=== PATIENT | female | born 1930 | race Hispanic/Latino ===

== ENCOUNTER 2017-03-14 14:34 | Inpatient (IN) | payer MEDICARE ==
[2017-03-14 14:34] VITALS: BMI 23.8
[2017-03-14] MEDS ORDERED: Sodium Chloride 0.9% 500 ML IV ONE ×2 (15:09→15:59)
--- NOTE | 2017-03-14 15:09 | C.PDOC ---
History Of Present Illness 87 y/o female with PMHx of HTN and Dementia presents to ED with complaints of worsening generalized weakness and Dementia for 2 weeks. As per son who is at bedside patients symptoms started Sunday but have became progressively worse and now patient is refusing to eat. Patient was brought to ED for concerns after today she "wet the bed" and refused to move from bed. At ED patient is responding to command and is AAAOx3. No other complaints at this time. Time Seen by Provider: 03/14/17 14:58 Chief Complaint (Nursing): Weakness/Neurological Deficit History Per: Patient History/Exam Limitations: no limitations Onset/Duration Of Symptoms: Days Current Symptoms Are (Timing): Still Present Past Medical History Reviewed: Historical Data, Nursing Documentation, Vital Signs Vital Signs: Last Vital Signs Temp 97.5 F L 03/14/17 14:44 Pulse 83 03/14/17 14:44 Resp 20 03/14/17 14:44 BP 142/78 03/14/17 14:44 Pulse Ox 95 03/14/17 16:13 - Medical History PMH: Alzheimer's Disease, CVA, Dementia, HTN, Hypercholesterolemia Surgical History: No Surg Hx Family History: States: No Known Family Hx - Social History Hx Tobacco Use: No Hx Alcohol Use: No Hx Substance Use: No - Immunization History Hx Tetanus Toxoid Vaccination: No Hx Influenza Vaccination: No Hx Pneumococcal Vaccination: No Review Of Systems Except As Marked, All Systems Reviewed And Found Negative. Constitutional: Negative for: Fever, Chills Gastrointestinal: Negative for: Nausea, Vomiting, Diarrhea Skin: Negative for: Rash Physical Exam - Physical Exam Appears: Other (lethargic) Skin: Warm, Dry, No Rash Head: Atraumatic, Normacephalic Eye(s): bilateral: Other (spacy in staring) Oral Mucosa: Moist Throat: Normal, No Erythema, No Exudate Chest: Symmetrical Cardiovascular: Rhythm Regular Respiratory: Normal Breath Sounds, No Rales, No Rhonchi, No Wheezing Gastrointestinal/Abdominal: Soft, No Guarding, No Rebound, Other (Diffuse discomfort) Extremity: Normal ROM, No Pedal Edema Neurological/Psych: Oriented x3 Gait: With Assistance (Walker) ED Course And Treatment - Laboratory Results Result Diagrams: 03/14/17 15:19 03/14/17 15:19 O2 Sat by Pulse Oximetry: 95 (RA) Pulse Ox Interpretation: Normal Disposition Discussed With DrArt: Minerva Green - Disposition Disposition: HOME/ ROUTINE Disposition Time: 16:37 Condition: GUARDED Instructions: Weakness (ED) Forms: [facility] (Cym[employer]) - Clinical Impression Clinical Impression: Weakness generalized - Scribe Statement The provider has reviewed the documentation as recorded by the Scribe Supa Flood All medical record entries made by the Scribe were at my direction and personally dictated by me. I have reviewed the chart and agree that the record accurately reflects my personal performance of the history, physical exam, medical decision making, and the department course for this patient. I have also personally directed, reviewed, and agree with the discharge instructions and disposition. Decision To Admit - Pt Status Changed To: Hospital Disposition Of: Inpatient - Admit Certification Admit to Inpatient:: After my assessment, the patient will require hospitalization for at least two midnights. This is because of the severity of symptoms shown, intensity of services needed, and/or the medical risk in this patient being treated as an outpatient. - . Bed Request Type: Regular Patient Diagnosis: Weakness generalized
[2017-03-14 15:23] LABS: BASO # 0.1 K/uL (0.0-0.2); BASO % 0.7 % (0.0-2.0); HEMATOCRIT 35.1 % (34.0-47.0); LYMPH # 0.7 K/uL (1.0-4.3); LYMPH % 6.6 % (20.0-40.0); MEAN CELL VOLUME 91.5 fL (81.0-99.0); MEAN CORPUSCULAR HEMOGLOBIN 30.5 pg (27.0-31.0); MEAN CORPUSCULAR HGB CONC 33.4 g/dL (33.0-37.0); MEAN PLATELET VOLUME 10.9 fL (7.2-11.7); MONO # 0.6 K/uL (0.0-0.8); MONO % 5.7 % (0.0-10.0); NRBC % 0.1 % (0.0-2.0); PLATELET COUNT 194 K/uL (130-400); RED CELL DISTRIBUTION WIDTH 14.9 % (11.5-14.5); WHITE BLOOD COUNT 10.2 K/uL (4.8-10.8)
[2017-03-14 15:32] LABS: POTASSIUM 4.5 mmol/L (3.6-5.2)
[2017-03-14 15:34] LABS: BILIRUBIN,TOTAL 0.9 mg/dL (0.2-1.3); TOTAL PROTEIN 8.5 g/dL (6.3-8.3)
[2017-03-14 15:35] LABS: CALCIUM 9.9 mg/dl (8.6-10.4)
[2017-03-14 15:51] LABS: TROPONIN I 0.034 ng/mL (0.00-0.120)
[2017-03-14 16:04] LABS: NEUTROPHIL 87 % (50-75); TOTAL CELLS COUNTED 100
[2017-03-14 16:05] LABS: LARGE PLATELETS PRESENT
--- NOTE | 2017-03-14 16:17 | RAD ---
HISTORY: pain COMPARISON: No prior. FINDINGS: BOWEL: Unremarkable bowel gas pattern. Dilated loop of bowel in the right upper quadrant of the abdomen likely represents transverse colon and hepatic flexure of the colon. No hepatic splenic enlargement. No masses or abnormal calcifications. BONES: Normal. OTHER FINDINGS: None. IMPRESSION: No active disease.
--- NOTE | 2017-03-14 16:18 | RAD ---
PROCEDURE: CHEST RADIOGRAPH, 1 VIEW HISTORY: SOB COMPARISON: 12/07/2015 FINDINGS: LUNGS: Subsegmental atelectasis at left lung base. No infiltrate elsewhere. PLEURA: No pneumothorax or pleural fluid seen. CARDIOVASCULAR: Normal. OSSEOUS STRUCTURES: Bilateral chronic rotator cuff insufficiency with superior subluxation of humeral head. VISUALIZED UPPER ABDOMEN: Normal. OTHER FINDINGS: None. IMPRESSION: Left basilar subsegmental atelectasis. No acute infiltrate.
[2017-03-14] MEDS: Enoxaparin 40 mg Syringe SC SCH (19:23)
--- NOTE | 2017-03-14 19:44 | CP.PCM.HP ---
Past Patient History - Infectious Disease Hx of Infectious Diseases: None - Past Medical History & Family History Past Medical History?: Yes - Past Social History Smoking Status: Never Smoked - CARDIAC Hx Hypercholesterolemia: Yes Hx Hypertension: Yes - PULMONARY Hx Respiratory Disorders: No - NEUROLOGICAL Hx Alzheimer's Disease: Yes Hx Dementia: Yes - HEENT Hx HEENT Problems: No - RENAL Hx Chronic Kidney Disease: No - ENDOCRINE/METABOLIC Hx Endocrine Disorders: No - HEMATOLOGICAL/ONCOLOGICAL Hx Blood Disorders: No - INTEGUMENTARY Hx Dermatological Problems: No - MUSCULOSKELETAL/RHEUMATOLOGICAL Hx Musculoskeletal Disorders: Yes Hx Falls: Yes - GASTROINTESTINAL Hx Gastrointestinal Disorders: No - GENITOURINARY/GYNECOLOGICAL Hx Genitourinary Disorders: No - PSYCHIATRIC Hx Substance Use: No - SURGICAL HISTORY Hx Surgeries: Yes Hx Eye Surgery: Yes - ANESTHESIA Hx Anesthesia: No Meds Allergies/Adverse Reactions: Allergies Allergy/AdvReac Type Severity Reaction Status Date / Time No Known Allergies Allergy Verified 03/14/17 14:46 Physical Exam - Constitutional Appears: Well - Head Exam Head Exam: ATRAUMATIC, NORMAL INSPECTION, NORMOCEPHALIC - Eye Exam Eye Exam: EOMI, Normal appearance, PERRL Pupil Exam: NORMAL ACCOMODATION, PERRL - ENT Exam ENT Exam: Mucous Membranes Moist, Normal Exam - Neck Exam Neck exam: Positive for: Normal Inspection - Respiratory Exam Respiratory Exam: Decreased Breath Sounds - Cardiovascular Exam Cardiovascular Exam: REGULAR RHYTHM, +S1, +S2 - GI/Abdominal Exam GI & Abdominal Exam: Diminished Bowel Sounds, Soft - Rectal Exam Rectal Exam: Deferred Results - Vital Signs Recent Vital Signs: Last Vital Signs Temp 97.5 F L 03/14/17 14:44 Pulse 78 03/14/17 17:40 Resp 19 03/14/17 17:40 BP 203/86 H 03/14/17 19:19 Pulse Ox 95 03/14/17 17:40 - Labs Result Diagrams: 03/14/17 15:19 03/14/17 15:19 Labs: Laboratory Results - last 24 hr 03/14/17 03/14/17 03/14/17 15:19 15:19 15:50 WBC 10.2 RBC 3.83 Hgb 11.7 Hct 35.1 MCV 91.5 MCH 30.5 MCHC 33.4 RDW 14.9 H Plt Count 194 MPV 10.9 Neut % (Auto) 87.0 H Lymph % (Auto) 6.6 L [place] % (Auto) 5.7 Eos % (Auto) 0.0 Baso % (Auto) 0.7 Neut # 8.8 H Lymph # 0.7 L [place] # 0.6 Eos # 0.0 Baso # 0.1 Neutrophils % (Manual) 87 H Lymphocytes % (Manual) 8 L Monocytes % (Manual) 5 Platelet Estimate Normal Large Platelets Present Hypochromasia (manual) Slight Poikilocytosis (manual Slight Anisocytosis (manual) Slight Target Cells Slight Sodium 135 Potassium 4.5 Chloride 99 Carbon Dioxide 23 Anion Gap 18 BUN 42 H Creatinine 1.4 H Est GFR ( Amer) 43 Est GFR (Non-Af Amer) 36 Random Glucose 130 H Calcium 9.9 Total Bilirubin 0.9 AST 36 ALT 28 Alkaline Phosphatase 61 Troponin I 0.0340 NT-Pro-B Natriuret Pep 4230 H Total Protein 8.5 H Albumin 4.3 Globulin 4.2 H Albumin/Globulin Ratio 1.0 Influenza Typ A,B (EIA) Negative for flu a/b
[2017-03-14 21:55] VITALS: RESP 20
[2017-03-15 07:26] LABS: BASO # 0.1 K/uL (0.0-0.2); BASO % 0.8 % (0.0-2.0); EOS # 0.1 K/uL (0.0-0.7); EOS % 1.6 % (0.0-4.0); HEMATOCRIT 29.8 % (34.0-47.0); LYMPH # 1.5 K/uL (1.0-4.3); LYMPH % 16.1 % (20.0-40.0); MEAN CELL VOLUME 91.1 fL (81.0-99.0); MEAN CORPUSCULAR HEMOGLOBIN 31.1 pg (27.0-31.0); MEAN CORPUSCULAR HGB CONC 34.1 g/dL (33.0-37.0); MEAN PLATELET VOLUME 10.9 fL (7.2-11.7); MONO % 10.7 % (0.0-10.0); RED CELL DISTRIBUTION WIDTH 14.6 % (11.5-14.5); WHITE BLOOD COUNT 9.2 K/uL (4.8-10.8)
[2017-03-15 07:35] LABS: POTASSIUM 3.4 mmol/L (3.6-5.2)
[2017-03-15 07:37] LABS: BILIRUBIN,TOTAL 0.5 mg/dL (0.2-1.3); CALCIUM 9.3 mg/dl (8.6-10.4); TOTAL PROTEIN 6.5 g/dL (6.3-8.3)
[2017-03-15] MEDS: Enoxaparin 40 mg Syringe SC SCH (10:29)
[2017-03-15] MEDS: Pantoprazole 40 mg EC Tab PO SCH (10:46)
--- NOTE | 2017-03-15 13:20 | CP.PCM.CON ---
History of Present Illness - History of Present Illness History of Present Illness: 87-year-old lady with prior history of hypertension, hypertensive heart disease , and dementia. She is homebound, and an echocardiogram in 2014 revealed normal left ventricular contractility no aortic stenosis. At this time, she is admitted with failure to thrive, weakness and low food intake.her blood pressure is controlled with multiple medication. And she was started on to ceftriaxone for possible sepsis. For prior history of diastolic left ventricular failure, we will repeat the echo.prior history of non-ST elevation [place], no cardiac categorization as per family wishes, dnr.now white count is down from 10-9, albumen is low and potassium is borderline Review of Systems - Review of Systems Systems not reviewed;Unavailable: Unstable Vital Signs, Altered Mental Status - Constitutional Constitutional: Anorexia, Weakness - EENT Eyes: absent: Exophthalmos Nose/Mouth/Throat: absent: Epistaxis - Cardiovascular Cardiovascular: absent: Acrocyanosis, Chest Pain, Diaphoresis, Dyspnea, Leg Edema, Palpitations, Syncope - Respiratory Respiratory: absent: Cough, Dyspnea, Hemoptysis - Gastrointestinal Gastrointestinal: absent: Abdominal Pain, Diarrhea, Hematochezia, Vomiting - Genitourinary Genitourinary: absent: Change in Urinary Stream - Reproductive: Female Reproductive:Female: Post Menopausal - Psychiatric Psychiatric: Depression - Endocrine Endocrine: Fatigue Past Patient History - Infectious Disease Hx of Infectious Diseases: None - Past Medical History & Family History Past Medical History?: Yes - Past Social History Smoking Status: Never Smoked - CARDIAC Hx Hypercholesterolemia: Yes Hx Hypertension: Yes - PULMONARY Hx Respiratory Disorders: No - NEUROLOGICAL Hx Alzheimer's Disease: Yes Hx Dementia: Yes - HEENT Hx HEENT Problems: No - RENAL Hx Chronic Kidney Disease: No - ENDOCRINE/METABOLIC Hx Endocrine Disorders: No - HEMATOLOGICAL/ONCOLOGICAL Hx Blood Disorders: No - INTEGUMENTARY Hx Dermatological Problems: No - MUSCULOSKELETAL/RHEUMATOLOGICAL Hx Musculoskeletal Disorders: Yes Hx Falls: Yes - GASTROINTESTINAL Hx Gastrointestinal Disorders: No - GENITOURINARY/GYNECOLOGICAL Hx Genitourinary Disorders: No - PSYCHIATRIC Hx Substance Use: No - SURGICAL HISTORY Hx Surgeries: Yes Hx Eye Surgery: Yes - ANESTHESIA Hx Anesthesia: No Meds Allergies/Adverse Reactions: Allergies Allergy/AdvReac Type Severity Reaction Status Date / Time No Known Allergies Allergy Verified 03/14/17 14:46 - Medications Medications: Current Medications Amlodipine Besylate (Norvasc) 5 mg PO DAILY [facility] Last Admin: 03/15/17 10:46 Dose: 5 mg Aspirin (Ecotrin) 81 mg PO DAILY [facility] Last Admin: 03/15/17 10:46 Dose: 81 mg Clonidine HCl (Catapres) 0.1 mg PO Q8H [facility] Last Admin: 03/15/17 10:49 Dose: 0.1 mg Enoxaparin Sodium (Lovenox) 40 mg SC DAILY [facility] Last Admin: 03/15/17 10:29 Dose: 40 mg Furosemide (Lasix) 40 mg IVP DAILY [facility] Last Admin: 03/15/17 10:50 Dose: 40 mg Hydralazine HCl (Apresoline) 100 mg PO Q8H [facility] Last Admin: 03/15/17 05:26 Dose: 100 mg Ceftriaxone Sodium 1 gm/ (Sodium Chloride) 100 mls @ 100 mls/hr IVPB DAILY [facility] Last Admin: 03/15/17 10:28 Dose: 100 mls/hr Losartan Potassium (Cozaar) 100 mg PO DAILY [facility] Last Admin: 03/15/17 10:46 Dose: 100 mg Meclizine HCl (Antivert) 12.5 mg PO TID [facility] Last Admin: 03/15/17 10:46 Dose: 12.5 mg Metoprolol Tartrate (Lopressor) 25 mg PO BID [facility] Last Admin: 03/15/17 10:46 Dose: 25 mg Pantoprazole Sodium (Protonix Ec Tab) 40 mg PO DAILY [facility] Last Admin: 03/15/17 10:46 Dose: 40 mg Rosuvastatin Calcium (Crestor) 5 mg PO HS [facility] Last Admin: 03/14/17 21:44 Dose: 5 mg Physical Exam - Constitutional Appears: Non-toxic - Head Exam Head Exam: ATRAUMATIC - Eye Exam Eye Exam: EOMI - ENT Exam ENT Exam: Mucous Membranes Moist - Neck Exam Neck exam: Negative for: Lymphadenopathy, Thyromegaly - Respiratory Exam Respiratory Exam: Clear to Auscultation Bilateral. absent: Chest Wall Tenderness, Rales - Cardiovascular Exam Cardiovascular Exam: REGULAR RHYTHM, Systolic Murmur - GI/Abdominal Exam GI & Abdominal Exam: Normal Bowel Sounds. absent: Organomegaly - Rectal Exam Rectal Exam: Deferred - Extremities Exam Extremities exam: Positive for: normal capillary refill, normal inspection. Negative for: calf tenderness - Neurological Exam Neurological exam: Alert - Psychiatric Exam Psychiatric exam: Anxious Results - Vital Signs Recent Vital Signs: Last Vital Signs Temp 97.8 F 03/15/17 07:42 Pulse 76 03/15/17 07:42 Resp 20 03/15/17 07:42 BP 146/70 03/15/17 10:50 Pulse Ox 95 03/15/17 07:42 - Labs Result Diagrams: 03/15/17 07:12 03/15/17 07:12 Labs: Laboratory Results - last 24 hr 03/14/17 03/14/17 03/14/17 15:19 15:19 15:50 WBC 10.2 RBC 3.83 Hgb 11.7 Hct 35.1 MCV 91.5 MCH 30.5 MCHC 33.4 RDW 14.9 H Plt Count 194 MPV 10.9 Neut % (Auto) 87.0 H Lymph % (Auto) 6.6 L [place] % (Auto) 5.7 Eos % (Auto) 0.0 Baso % (Auto) 0.7 Neut # 8.8 H Lymph # 0.7 L [place] # 0.6 Eos # 0.0 Baso # 0.1 Neutrophils % (Manual) 87 H Lymphocytes % (Manual) 8 L Monocytes % (Manual) 5 Platelet Estimate Normal Large Platelets Present Hypochromasia (manual) Slight Poikilocytosis (manual Slight Anisocytosis (manual) Slight Target Cells Slight Sodium 135 Potassium 4.5 Chloride 99 Carbon Dioxide 23 Anion Gap 18 BUN 42 H Creatinine 1.4 H Est GFR ( Amer) 43 Est GFR (Non-Af Amer) 36 Random Glucose 130 H Calcium 9.9 Total Bilirubin 0.9 AST 36 ALT 28 Alkaline Phosphatase 61 Troponin I 0.0340 NT-Pro-B Natriuret Pep 4230 H Total Protein 8.5 H Albumin 4.3 Globulin 4.2 H Albumin/Globulin Ratio 1.0 Influenza Typ A,B (EIA) Negative for flu a/b 03/15/17 03/15/17 07:12 07:12 WBC 9.2 RBC 3.27 L Hgb 10.2 L Hct 29.8 L MCV 91.1 MCH 31.1 H MCHC 34.1 RDW 14.6 H Plt Count 170 MPV 10.9 Neut % (Auto) 70.8 Lymph % (Auto) 16.1 L [place] % (Auto) 10.7 H Eos % (Auto) 1.6 Baso % (Auto) 0.8 Neut # 6.5 Lymph # 1.5 [place] # 1.0 H Eos # 0.1 Baso # 0.1 Neutrophils % (Manual) Lymphocytes % (Manual) Monocytes % (Manual) Platelet Estimate Large Platelets Hypochromasia (manual) Poikilocytosis (manual Anisocytosis (manual) Target Cells Sodium 136 Potassium 3.4 L Chloride 99 Carbon Dioxide 25 Anion Gap 15 BUN 53 H Creatinine 1.5 H Est GFR ( Amer) 40 Est GFR (Non-Af Amer) 33 Random Glucose 90 Calcium 9.3 Total Bilirubin 0.5 AST 19 ALT 33 Alkaline Phosphatase 56 Troponin I NT-Pro-B Natriuret Pep Total Protein 6.5 Albumin 3.3 L D Globulin 3.2 Albumin/Globulin Ratio 1.0 Influenza Typ A,B (EIA) Assessment & Plan (1) Weakness generalized Status: Acute (2) Dehydration Status: Acute Comment: possible sepsis on Rocephin observe on hydration (3) Dementia Status: Chronic
--- NOTE | 2017-03-15 18:39 | CP.PCM.PN ---
Subjective - Date & Time of Evaluation Date of Evaluation: 03/15/17 Time of Evaluation: 08:20 - Subjective Subjective: clinically same Objective - Vital Signs/Intake and Output Vital Signs (last 24 hours): Temp Pulse Resp BP Pulse Ox 97.6 F 66 20 128/65 96 03/15/17 15:00 03/15/17 15:00 03/15/17 15:00 03/15/17 18:02 03/15/17 15:00 Intake and Output: 03/15/17 03/15/17 06:59 18:59 Intake Total 450 340 Balance 450 340 - Medications Medications: Current Medications Amlodipine Besylate (Norvasc) 5 mg PO DAILY [facility] Last Admin: 03/15/17 10:46 Dose: 5 mg Aspirin (Ecotrin) 81 mg PO DAILY [facility] Last Admin: 03/15/17 10:46 Dose: 81 mg Clonidine HCl (Catapres) 0.1 mg PO Q8H [facility] Last Admin: 03/15/17 18:03 Dose: 0.1 mg Enoxaparin Sodium (Lovenox) 40 mg SC DAILY [facility] Last Admin: 03/15/17 10:29 Dose: 40 mg Furosemide (Lasix) 40 mg IVP DAILY [facility] Last Admin: 03/15/17 10:50 Dose: 40 mg Hydralazine HCl (Apresoline) 100 mg PO Q8H [facility] Last Admin: 03/15/17 14:32 Dose: 100 mg Ceftriaxone Sodium 1 gm/ (Sodium Chloride) 100 mls @ 100 mls/hr IVPB DAILY [facility] Last Admin: 03/15/17 10:28 Dose: 100 mls/hr Losartan Potassium (Cozaar) 100 mg PO DAILY [facility] Last Admin: 03/15/17 10:46 Dose: 100 mg Meclizine HCl (Antivert) 12.5 mg PO TID [facility] Last Admin: 03/15/17 18:03 Dose: 12.5 mg Metoprolol Tartrate (Lopressor) 25 mg PO BID [facility] Last Admin: 03/15/17 18:02 Dose: 25 mg Pantoprazole Sodium (Protonix Ec Tab) 40 mg PO DAILY [facility] Last Admin: 03/15/17 10:46 Dose: 40 mg Potassium Chloride (K-Dur 20 Meq Er Tab) 20 meq PO DAILY [facility] Rosuvastatin Calcium (Crestor) 5 mg PO HS [facility] Last Admin: 03/14/17 21:44 Dose: 5 mg - Labs Labs: 03/15/17 07:12 03/15/17 07:12
--- NOTE | 2017-03-15 23:06 | CARD ---
APPROVED REPORT EKG Measurement Heart [id number] <Conclusion> Normal sinus rhythm Left axis deviation Left ventricular hypertrophy with QRS widening and repolarization abnormality Abnormal ECG
[2017-03-16] MEDS ORDERED: POLYETHYLENE GLYCOL 3350 17 GM/Dose PACKET PO ONE (02:08)
[2017-03-16] MEDS: Pantoprazole 40 mg EC Tab PO SCH (09:38)
[2017-03-16] MEDS: Potassium Chloride 20 mEq ER Tab PO SCH (09:38)
[2017-03-16] MEDS: Enoxaparin 40 mg Syringe SC SCH (09:39)
--- NOTE | 2017-03-16 12:19 | CP.PCM.PN ---
Subjective - Date & Time of Evaluation Date of Evaluation: 03/16/17 Time of Evaluation: 12:00 - Subjective Subjective: Improved with oral intake, no shortness of breath, on treatment for dehydration and sepsis, await an echocardiogram. Objective - Vital Signs/Intake and Output Vital Signs (last 24 hours): Temp Pulse Resp BP Pulse Ox 97.7 F 76 20 126/67 97 03/16/17 07:39 03/16/17 07:39 03/16/17 07:39 03/16/17 09:39 03/16/17 07:39 Intake and Output: 03/16/17 03/16/17 06:59 18:59 Intake Total 360 Balance 360 - Medications Medications: Current Medications Amlodipine Besylate (Norvasc) 5 mg PO DAILY [facility] Last Admin: 03/16/17 09:38 Dose: 5 mg Aspirin (Ecotrin) 81 mg PO DAILY [facility] Last Admin: 03/16/17 09:38 Dose: 81 mg Clonidine HCl (Catapres) 0.1 mg PO Q8H [facility] Last Admin: 03/16/17 09:47 Dose: 0.1 mg Enoxaparin Sodium (Lovenox) 40 mg SC DAILY [facility] Last Admin: 03/16/17 09:39 Dose: 40 mg Furosemide (Lasix) 40 mg IVP DAILY [facility] Last Admin: 03/16/17 09:39 Dose: 40 mg Hydralazine HCl (Apresoline) 100 mg PO Q8H [facility] Last Admin: 03/16/17 06:11 Dose: 100 mg Ceftriaxone Sodium 1 gm/ (Sodium Chloride) 50 mls @ 100 mls/hr IVPB DAILY [facility] Last Admin: 03/16/17 09:46 Dose: 100 mls/hr Losartan Potassium (Cozaar) 100 mg PO DAILY [facility] Last Admin: 03/16/17 09:38 Dose: 100 mg Meclizine HCl (Antivert) 12.5 mg PO TID [facility] Last Admin: 03/16/17 09:38 Dose: 12.5 mg Metoprolol Tartrate (Lopressor) 25 mg PO BID [facility] Last Admin: 03/16/17 09:38 Dose: 25 mg Pantoprazole Sodium (Protonix Ec Tab) 40 mg PO DAILY [facility] Last Admin: 03/16/17 09:38 Dose: 40 mg Potassium Chloride (K-Dur 20 Meq Er Tab) 20 meq PO DAILY [facility] Last Admin: 03/16/17 09:38 Dose: 20 meq Rosuvastatin Calcium (Crestor) 5 mg PO HS [facility] Last Admin: 03/15/17 21:15 Dose: 5 mg - Labs Labs: 03/15/17 07:12 03/15/17 07:12 - Constitutional Appears: Non-toxic - Head Exam Head Exam: ATRAUMATIC - Eye Exam Eye Exam: EOMI - ENT Exam ENT Exam: Mucous Membranes Moist - Neck Exam Neck Exam: absent: Lymphadenopathy, Thyromegaly - Respiratory Exam Respiratory Exam: Clear to Ausculation Bilateral. absent: Rales - Cardiovascular Exam Cardiovascular Exam: REGULAR RHYTHM, Murmur - GI/Abdominal Exam GI & Abdominal Exam: Normal Bowel Sounds. absent: Organomegaly - Rectal Exam Rectal Exam: Deferred - Extremities Exam Extremities Exam: Normal Capillary Refill. absent: Calf Tenderness - Neurological Exam Neurological Exam: Alert - Psychiatric Exam Psychiatric exam: Anxious - Skin Skin Exam: Dry Assessment and Plan (1) Weakness generalized Status: Acute (2) Dehydration Status: Acute (3) Dementia Status: Chronic
[2017-03-16 12:29] LABS: RBC URINE 1 /hpf (0-3); URINE BACTERIA RARE (<OCC); URINE BILIRUBIN NEGATIVE (NEGATIVE); URINE BLOOD NEGATIVE (NEGATIVE); URINE COLOR Straw (YELLOW); URINE GLUCOSE (UA) NORMAL (Normal); URINE KETONE NEGATIVE (NEGATIVE); URINE LEUKOCYTE ESTERASE 1+ Leu/uL (Negative); URINE PROTEIN NEGATIVE (NEGATIVE); URINE UROBILINOGEN NORMAL mg/dL (0.2-1.0); WBC URINE 13 /hpf (0-5)
--- NOTE | 2017-03-16 16:43 | CP.PCM.PN ---
Subjective - Date & Time of Evaluation Date of Evaluation: 03/16/17 Time of Evaluation: 07:40 - Subjective Subjective: clinically same Objective - Vital Signs/Intake and Output Vital Signs (last 24 hours): Temp Pulse Resp BP Pulse Ox 97.7 F 76 20 126/67 97 03/16/17 07:39 03/16/17 07:39 03/16/17 07:39 03/16/17 15:21 03/16/17 07:39 Intake and Output: 03/16/17 03/16/17 06:59 18:59 Intake Total 360 500 Balance 360 500 - Medications Medications: Current Medications Amlodipine Besylate (Norvasc) 5 mg PO DAILY [facility] Last Admin: 03/16/17 09:38 Dose: 5 mg Aspirin (Ecotrin) 81 mg PO DAILY [facility] Last Admin: 03/16/17 09:38 Dose: 81 mg Clonidine HCl (Catapres) 0.1 mg PO Q8H [facility] Last Admin: 03/16/17 09:47 Dose: 0.1 mg Enoxaparin Sodium (Lovenox) 40 mg SC DAILY [facility] Last Admin: 03/16/17 09:39 Dose: 40 mg Furosemide (Lasix) 40 mg IVP DAILY [facility] Last Admin: 03/16/17 09:39 Dose: 40 mg Hydralazine HCl (Apresoline) 100 mg PO Q8H [facility] Last Admin: 03/16/17 14:24 Dose: 100 mg Ceftriaxone Sodium 1 gm/ (Sodium Chloride) 50 mls @ 100 mls/hr IVPB DAILY [facility] Last Admin: 03/16/17 09:46 Dose: 100 mls/hr Losartan Potassium (Cozaar) 100 mg PO DAILY [facility] Last Admin: 03/16/17 09:38 Dose: 100 mg Meclizine HCl (Antivert) 12.5 mg PO TID [facility] Last Admin: 03/16/17 14:26 Dose: 12.5 mg Metoprolol Tartrate (Lopressor) 25 mg PO BID [facility] Last Admin: 03/16/17 09:38 Dose: 25 mg Pantoprazole Sodium (Protonix Ec Tab) 40 mg PO DAILY [facility] Last Admin: 03/16/17 09:38 Dose: 40 mg Potassium Chloride (K-Dur 20 Meq Er Tab) 20 meq PO DAILY [facility] Last Admin: 03/16/17 09:38 Dose: 20 meq Rosuvastatin Calcium (Crestor) 5 mg PO HS [facility] Last Admin: 03/15/17 21:15 Dose: 5 mg - Labs Labs: 03/15/17 07:12 03/15/17 07:12 - Constitutional Appears: Well - Head Exam Head Exam: ATRAUMATIC, NORMAL INSPECTION, NORMOCEPHALIC - Eye Exam Eye Exam: EOMI, Normal appearance, PERRL Pupil Exam: NORMAL ACCOMODATION, PERRL - ENT Exam ENT Exam: Mucous Membranes Moist, Normal Exam - Neck Exam Neck Exam: Full ROM, Normal Inspection. absent: Lymphadenopathy - Respiratory Exam Respiratory Exam: Decreased Breath Sounds - Cardiovascular Exam Cardiovascular Exam: REGULAR RHYTHM, +S1, +S2 - GI/Abdominal Exam GI & Abdominal Exam: Soft, Diminished Bowel Sounds - Rectal Exam Rectal Exam: Deferred
[2017-03-16] MEDS ORDERED: Potassium Chloride 10 mEq ER Tab PO STA (20:16)
[2017-03-17] MEDS ORDERED: Pantoprazole 40 mg EC Tab PO SCH (10:00)
--- NOTE | 2017-03-17 10:13 | CP.PCM.PN ---
Subjective - Date & Time of Evaluation Date of Evaluation: 03/17/17 Time of Evaluation: 07:20 - Subjective Subjective: clinically same Objective - Vital Signs/Intake and Output Vital Signs (last 24 hours): Temp Pulse Resp BP Pulse Ox 97.9 F 68 20 128/73 96 03/17/17 07:27 03/17/17 07:27 03/17/17 07:27 03/17/17 07:27 03/17/17 07:27 Intake and Output: 03/17/17 03/17/17 06:59 18:59 Intake Total 360 Balance 360 - Medications Medications: Current Medications Amlodipine Besylate (Norvasc) 5 mg PO DAILY [facility] Aspirin (Ecotrin) 81 mg PO DAILY [facility] Clonidine HCl (Catapres) 0.1 mg PO Q8H [facility] Last Admin: 03/17/17 02:39 Dose: 0.1 mg Enoxaparin Sodium (Lovenox) 40 mg SC DAILY [facility] Last Admin: 03/16/17 09:39 Dose: 40 mg Furosemide (Lasix) 40 mg IVP DAILY [facility] Last Admin: 03/16/17 09:39 Dose: 40 mg Hydralazine HCl (Apresoline) 100 mg PO Q8H [facility] Last Admin: 03/17/17 05:43 Dose: 100 mg Ceftriaxone Sodium 1 gm/ (Sodium Chloride) 100 mls @ 100 mls/hr IVPB DAILY [facility] Losartan Potassium (Cozaar) 100 mg PO DAILY [facility] Meclizine HCl (Antivert) 12.5 mg PO TID [facility] Last Admin: 03/16/17 17:05 Dose: 12.5 mg Meclizine HCl (Antivert) 15 mg PO TID [facility] Metoprolol Tartrate (Lopressor) 25 mg PO BID [facility] Last Admin: 03/16/17 17:05 Dose: 25 mg Metoprolol Tartrate (Lopressor) 28 mg PO BID [facility] Pantoprazole Sodium (Protonix Ec Tab) 40 mg PO DAILY [facility] Potassium Chloride (K-Dur 20 Meq Er Tab) 20 meq PO DAILY [facility] Last Admin: 03/16/17 09:38 Dose: 20 meq Rosuvastatin Calcium (Crestor) 5 mg PO HS [facility] - Labs Labs: 03/15/17 07:12 03/15/17 07:12 - Constitutional Appears: Well - Head Exam Head Exam: ATRAUMATIC, NORMAL INSPECTION, NORMOCEPHALIC - Eye Exam Eye Exam: EOMI, Normal appearance, PERRL Pupil Exam: NORMAL ACCOMODATION, PERRL - ENT Exam ENT Exam: Mucous Membranes Moist, Normal Exam - Neck Exam Neck Exam: Full ROM, Normal Inspection. absent: Lymphadenopathy - Respiratory Exam Respiratory Exam: Decreased Breath Sounds - Cardiovascular Exam Cardiovascular Exam: REGULAR RHYTHM, +S1, +S2 - GI/Abdominal Exam GI & Abdominal Exam: Soft, Diminished Bowel Sounds - Rectal Exam Rectal Exam: Deferred
[2017-03-17] MEDS: Enoxaparin 40 mg Syringe SC SCH (10:30)
[2017-03-17] MEDS: Potassium Chloride 20 mEq ER Tab PO SCH (10:31)
--- NOTE | 2017-03-17 13:09 | CP.PCM.PN ---
Subjective - Date & Time of Evaluation Date of Evaluation: 03/17/17 Time of Evaluation: 12:25 - Subjective Subjective: patient seen today, awake alert, oriented, states feels better, denies nay chest pain, sob, N/V/D Objective - Vital Signs/Intake and Output Vital Signs (last 24 hours): Temp Pulse Resp BP Pulse Ox 97.9 F 68 20 128/73 96 03/17/17 07:27 03/17/17 07:27 03/17/17 07:27 03/17/17 10:32 03/17/17 07:27 Intake and Output: 03/17/17 03/17/17 06:59 18:59 Intake Total 360 Balance 360 - Medications Medications: Current Medications Amlodipine Besylate (Norvasc) 5 mg PO DAILY [facility] Last Admin: 03/17/17 10:31 Dose: 5 mg Aspirin (Ecotrin) 81 mg PO DAILY [facility] Last Admin: 03/17/17 10:31 Dose: 81 mg Clonidine HCl (Catapres) 0.1 mg PO Q8H [facility] Last Admin: 03/17/17 02:39 Dose: 0.1 mg Enoxaparin Sodium (Lovenox) 40 mg SC DAILY [facility] Last Admin: 03/17/17 10:30 Dose: 40 mg Furosemide (Lasix) 40 mg IVP DAILY [facility] Last Admin: 03/17/17 10:32 Dose: 40 mg Hydralazine HCl (Apresoline) 100 mg PO Q8H [facility] Last Admin: 03/17/17 05:43 Dose: 100 mg Ceftriaxone Sodium 1 gm/ (Sodium Chloride) 100 mls @ 100 mls/hr IVPB DAILY [facility] Last Admin: 03/17/17 10:34 Dose: 100 mls/hr Losartan Potassium (Cozaar) 100 mg PO DAILY [facility] Last Admin: 03/17/17 10:31 Dose: 100 mg Meclizine HCl (Antivert) 12.5 mg PO TID [facility] Last Admin: 03/17/17 10:33 Dose: Not Given Meclizine HCl (Antivert) 15 mg PO TID [facility] Metoprolol Tartrate (Lopressor) 25 mg PO BID [facility] Last Admin: 03/17/17 10:31 Dose: 25 mg Metoprolol Tartrate (Lopressor) 28 mg PO BID [facility] Pantoprazole Sodium (Protonix Ec Tab) 40 mg PO DAILY [facility] Last Admin: 03/17/17 10:31 Dose: 40 mg Potassium Chloride (K-Dur 20 Meq Er Tab) 20 meq PO DAILY [facility] Last Admin: 03/17/17 10:31 Dose: 20 meq Rosuvastatin Calcium (Crestor) 5 mg PO HS [facility] - Labs Labs: 03/15/17 07:12 03/15/17 07:12
[2017-03-17 13:44] LABS: BASO # 0.1 K/uL (0.0-0.2); BASO % 1.1 % (0.0-2.0); EOS # 0.5 K/uL (0.0-0.7); EOS % 6.2 % (0.0-4.0); LYMPH % 11.6 % (20.0-40.0); MEAN CELL VOLUME 92.3 fL (81.0-99.0); MEAN CORPUSCULAR HEMOGLOBIN 30.2 pg (27.0-31.0); MEAN CORPUSCULAR HGB CONC 32.8 g/dL (33.0-37.0); MEAN PLATELET VOLUME 11.4 fL (7.2-11.7); MONO # 0.9 K/uL (0.0-0.8); MONO % 10.4 % (0.0-10.0); RED CELL DISTRIBUTION WIDTH 14.8 % (11.5-14.5); WHITE BLOOD COUNT 8.6 K/uL (4.8-10.8)
[2017-03-17 13:53] LABS: POTASSIUM 3.9 mmol/L (3.6-5.2)
[2017-03-17 13:57] LABS: CALCIUM 8.7 mg/dl (8.6-10.4)
[2017-03-17 16:42] VITALS: PULSE 69; TEMP 98; O2SAT 95
[2017-03-17 17:44] VITALS: BP 132/74
--- NOTE | 2017-03-17 21:54 | CARD ---
APPROVED REPORT EXAM: Two-dimensional and M-mode echocardiogram with Doppler and color Doppler. Other Information Quality : FairRhythm : NSR INDICATION Dyspnea Congestive Heart Failure COPD RISK FACTORS Hypertension M-Mode DIMENSIONS RVDd1.51 (2.1-3.2cm)Left Atrium (MM)3.80 (2.5-4.0cm) IVSd1.62 (0.7-1.1cm)Aortic Root3.47 (2.2-3.7cm) LVDd4.65 (4.0-5.6cm)Aortic Cusp Exc.1.77 (1.5-2.0cm) PWd1.55 (0.7-1.1cm)FS (%) 42 % LVDs2.69 (2.0-3.8cm)LVEF (%)73 (>50%) Aortic Valve AI P 1/2 [id number] Mitral Valve MV E Opgcsbzz69.8cm/sMV A Zwtwrait011.3cm/sE/A ratio0.5 TDI E/Lateral E'0.0E/Medial E'0.0 Tricuspid Valve TR Peak [id number]/sTR Peak Gr.[id number] LEFT VENTRICLE The left ventricle is normal size. There is moderate to severe concentric left ventricular hypertrophy. Left ventricle systolic function is normal. The Ejection Fraction is >70%. There is normal LV segmental wall motion. Tissue Doppler imaging reveals abnormal left ventricular diastolic dysfunction. RIGHT VENTRICLE The right ventricle is normal size. There is normal right ventricular wall thickness. The right ventricular systolic function is normal. ATRIA The left atrium size is normal. The right atrium size is normal. The interatrial septum is intact with no evidence for an atrial septal defect. AORTIC VALVE The aortic valve is moderately sclerotic but opens well. There is mild aortic regurgitation. There is no aortic valvular stenosis. There is no aortic valvular vegetation. MITRAL VALVE The mitral valve is normal in structure. There is no evidence of mitral valve prolapse. There is no mitral valve stenosis. Mitral regurgitation is mild. TRICUSPID VALVE The tricuspid valve is normal in structure. There is trace to mild tricuspid regurgitation. Right ventricular systolic pressure is estimated at less than 30 mmHg. There is no pulmonary hypertension. PULMONIC VALVE The pulmonic valve is not well visualized. There is no pulmonic valvular regurgitation. GREAT VESSELS The aortic root is normal in size. PERICARDIAL EFFUSION There is no significant pericardial effusion. <Conclusion> Left ventricle systolic function is normal. The Ejection Fraction is >70%. Hypertensive heart disease. Diastolic dysfunction. There is mild aortic regurgitation. Mitral regurgitation is mild. There is trace to mild tricuspid regurgitation. There is no pulmonary hypertension. There is no pulmonic valvular regurgitation.
== END 2017-03-17 21:14 | DRG 641 ==
LOC: C.ER 14:34 → C.9E 16:38 → C.3T 17:12
PROVIDERS: ADMIT Internal Medicine Nephrology; ATTEND Internal Medicine Nephrology
DX: R62.7 Adult failure to thrive (principal); E86.0 Dehydration; R63.0 Anorexia; I11.0 Hypertensive heart disease with heart failure; I50.30 Unspecified diastolic (congestive) heart failure; G30.9 Alzheimer's disease, unspecified; F02.80 Dementia in other diseases classified elsewhere, unspecified severity, without behavioral disturbance, psychotic disturbance, mood disturbance, and anxiety; E78.00 Pure hypercholesterolemia, unspecified; R53.1 Weakness; I25.2 Old myocardial infarction; Z86.73 Personal history of transient ischemic attack (TIA), and cerebral infarction without residual deficits